=== PATIENT | female | born 1970 | race Caucasian/White ===

== ENCOUNTER 2024-05-04 08:51 | Day surgery (SDC) | payer OTHER, SELFPAY ==
[2024-05-02 17:00] VITALS: BMI 25.9
--- NOTE | 2024-05-03 10:11 | P.CONAN_ITS ---
Documented by User: Cara Gamble NP 05/03/24 10:12 HPI - Anesthesia Eval Consult details Narrative: 54yo F for Colonoscopy Chronic opioids PMFSH Past Medical History Medical History Depression Back pain OAB (overactive bladder) HLD (hyperlipidemia) COPD (chronic obstructive pulmonary disease) Cauda equina syndrome HTN (hypertension) Surgical History Surgical History (Updated 05/04/24 @ 09:52 by Jazlyn Aguilar RN) History of abdominoplasty Hx laparoscopic cholecystectomy Hx of cholecystectomy Hx of tonsillectomy History of loop electrical excision procedure (LEEP) History of back surgery Hx of neck surgery Hx of colonoscopy Social History Social History Patient Tobacco Use Status: Never used Tobacco Advance Directives: No Advance Directives Information Provided: Yes Meds Allergies Allergy/AdvReac Type Severity Reaction Status Date / Time amitriptyline Allergy Unknown Verified 05/03/24 09:36 codeine Allergy Unknown Verified 05/03/24 09:36 olanzapine [From Zyprexa] Allergy Unknown Verified 05/03/24 09:36 Sulfa (Sulfonamide Allergy Unknown Verified 05/03/24 09:36 Antibiotics) venlafaxine [From Effexor] Allergy Unknown Verified 05/04/24 09:53 Home Medications ?Medication ?Instructions ?Recorded ?Confirmed ?Last Taken ?Type albuterol sulfate 90 mcg/actuation inhalation 05/02/24 Unknown History aerosol inhaler budesonide 160 mcg-glycopyr 9 2 inh inhalation BID 05/02/24 05/02/24 05/04/24 History mcg-formot 4.8 mcg/actuation HFA inhaler (Breztri Aerosphere) carisoprodol 350 mg tablet 350 mg PO TID PRN muscle spasm 05/02/24 05/02/24 Unknown History diazepam 5 mg tablet 5 mg PO TID PRN anxiety 05/02/24 05/02/24 Unknown History ferrous sulfate 325 mg (65 mg 325 mg PO DAILY 05/02/24 05/02/24 Unknown History iron) tablet gabapentin 800 mg tablet 800 mg PO QID 05/02/24 05/02/24 Unknown History lisinopril 40 mg tablet 40 mg DAILY 05/02/24 05/04/24 05/04/24 History metoprolol succinate 100 mg 100 mg PO DAILY 05/02/24 05/02/24 05/04/24 History capsule sprinkle, ext. release 24 hr mirabegron 50 mg tablet,extended mg PO DAILY 05/02/24 Unknown History release 24 hr nicotine 21 mg/24 hr daily 1 patch topical BEDTIME 05/02/24 05/02/24 Unknown History transdermal patch nystatin 100,000 unit/mL oral PO 05/02/24 Unknown History suspension oxycodone 30 mg tablet,crush 30 mg PO Q8H 05/02/24 05/02/24 Unknown History resistant,extended release 12 hr (OxyContin) oxycodone 5 mg tablet 5 mg PO Q6H PRN Pain 05/02/24 05/02/24 Unknown History simvastatin 20 mg tablet 20 mg PO QPM 05/02/24 05/02/24 Unknown History trazodone 100 mg tablet 150 - 200 mg PO BEDTIME PRN 05/02/24 05/02/24 Unknown History insomnia Exam Height,Weight and Vital Signs: Height 5 ft 5 in Weight 70.534 kg Assessment and Plan Assessment Anesthesia Assessment: Chart Reviewed Documented by User: Jim Scott MD 05/04/24 10:29 [facility] Past Medical History Medical History Depression Back pain OAB (overactive bladder) HLD (hyperlipidemia) COPD (chronic obstructive pulmonary disease) Cauda equina syndrome HTN (hypertension) Family History Family history of problems with anesthesia: No Surgical History Surgical History (Updated 05/04/24 @ 09:52 by Jazlyn Aguilar RN) History of abdominoplasty Hx laparoscopic cholecystectomy Hx of cholecystectomy Hx of tonsillectomy History of loop electrical excision procedure (LEEP) History of back surgery Hx of neck surgery Hx of colonoscopy History of Problems with Anesthesia: No Social History Social History Patient Tobacco Use Status: Never used Tobacco Advance Directives: No Advance Directives Information Provided: Yes Meds Allergies Allergy/AdvReac Type Severity Reaction Status Date / Time amitriptyline Allergy Unknown Verified 05/03/24 09:36 codeine Allergy Unknown Verified 05/03/24 09:36 olanzapine [From Zyprexa] Allergy Unknown Verified 05/03/24 09:36 Sulfa (Sulfonamide Allergy Unknown Verified 05/03/24 09:36 Antibiotics) venlafaxine [From Effexor] Allergy Unknown Verified 05/04/24 09:53 Home Medications ?Medication ?Instructions ?Recorded ?Confirmed ?Last Taken ?Type albuterol sulfate 90 mcg/actuation inhalation 05/02/24 Unknown History aerosol inhaler budesonide 160 mcg-glycopyr 9 2 inh inhalation BID 05/02/24 05/02/24 05/04/24 History mcg-formot 4.8 mcg/actuation HFA inhaler (Breztri Aerosphere) carisoprodol 350 mg tablet 350 mg PO TID PRN muscle spasm 05/02/24 05/02/24 Unknown History diazepam 5 mg tablet 5 mg PO TID PRN anxiety 05/02/24 05/02/24 Unknown History ferrous sulfate 325 mg (65 mg 325 mg PO DAILY 05/02/24 05/02/24 Unknown History iron) tablet gabapentin 800 mg tablet 800 mg PO QID 05/02/24 05/02/24 Unknown History lisinopril 40 mg tablet 40 mg DAILY 05/02/24 05/04/24 05/04/24 History metoprolol succinate 100 mg 100 mg PO DAILY 05/02/24 05/02/24 05/04/24 History capsule sprinkle, ext. release 24 hr mirabegron 50 mg tablet,extended mg PO DAILY 05/02/24 Unknown History release 24 hr nicotine 21 mg/24 hr daily 1 patch topical BEDTIME 05/02/24 05/02/24 Unknown History transdermal patch nystatin 100,000 unit/mL oral PO 05/02/24 Unknown History suspension oxycodone 30 mg tablet,crush 30 mg PO Q8H 05/02/24 05/02/24 Unknown History resistant,extended release 12 hr (OxyContin) oxycodone 5 mg tablet 5 mg PO Q6H PRN Pain 05/02/24 05/02/24 Unknown History simvastatin 20 mg tablet 20 mg PO QPM 05/02/24 05/02/24 Unknown History trazodone 100 mg tablet 150 - 200 mg PO BEDTIME PRN 05/02/24 05/02/24 Unknown History insomnia Exam Airway Mallampati Class: II TM Dist: <=3cm Neck ROM: Full Loose/Missing/Broken Teeth: No Heart: ok Lungs: ok Assessment and Plan Assessment Anesthesia Assessment: Anesthesia Plan Discussed Final Anesthetic Review Family History of Problems with Anesthesia: No History of Problems with Anesthesia: No NPO: Yes ASA Class: III Final Preanesthetic Review: No Changes in Pt Med Stat, Meds/Allgs Chart Reviewed, Consent Obtained/Reviewed and Anes Risks/Benef Reviewed Patient Risk: Intermediate Procedure Risk: Low Anesthetic Plan Anesthetic Plan: MAC: and Agree w/ Assess. and Plan Disposition: Standard PACU
[2024-05-04 09:56] VITALS: BP 146/95; PULSE 71; RESP 14; TEMP 36.7; O2SAT 97
[2024-05-04 10:00] VITALS: BMI 24.8
[2024-05-04] MEDS: Lactated Ringers 1,000 ML 100 ML IVCONT (10:09)
--- NOTE | 2024-05-04 10:14 | MHC.SHP ---
Pre-Procedural Eval Section A - 24 Hr Update-Section A only Date of Service: 05/04/24 Section B - Complete if H&P > 30 days Chief Complaint: screening,hx malignant neoplasm Details of Present Illness: see h&p no changes Relevant Family History (Specify if Yes): No Relevant Social History: None Present Medications: see Short Stay Collaborative assessment Medical History: No relevant PMH History of Previous Operations: No relevant previous surgery Allergies: Allergies Allergy/AdvReac Type Severity Reaction Status Date / Time amitriptyline Allergy Unknown Verified 05/03/24 09:36 codeine Allergy Unknown Verified 05/03/24 09:36 olanzapine [From Zyprexa] Allergy Unknown Verified 05/03/24 09:36 Sulfa (Sulfonamide Allergy Unknown Verified 05/03/24 09:36 Antibiotics) venlafaxine [From Effexor] Allergy Unknown Verified 05/04/24 09:53 Review of Systems Sugical H&P ROS: Negative: Constitution, Cardiovascular, Respiratory, Neurological, Psychiatric, Hem-Onc, Allergic/Immunologic, Gastrointestinal, Genitourinary, Musculoskeletal, Integumentary, Endocrine and Eyes/Ears/Nose/Throat Exam Surgical H&P Exam: Normal: HEENT, Normal: Heart, Normal: Lungs, Normal: Extremities, Normal: Abdomen, Normal: Skin and Normal: Neurological Plan Diagnosis/Plan: Unchanged I have reviewed the history and physical and performed a pertinent physical examination on my patient. No changes have occurred unless specified. Time Spent With Patient Time: Total time managing care of this patient today ____ minutes.
--- NOTE | 2024-05-04 10:58 | PM.OP ---
Brief Operative Note Date of Service: 05/04/24 Pre-op diagnosis: screening Post-op diagnosis: same Procedure: colonoscopy Surgeon: Naresh Donovan MD Anesthesia: MAC Was an Technology Education Instructor used for this Procedure?: No Estimated blood loss (mL): 0 Pathology: none sent Condition: stable Disposition: PACU
[2024-05-04 11:01] VITALS: BP 102/64; PULSE 74; RESP 18; TEMP 36.4; O2SAT 97
[2024-05-04 11:16] VITALS: BP 124/77; PULSE 69; RESP 18; TEMP 36.6; O2SAT 99
--- NOTE | 2024-05-04 11:22 | OP_ITS ---
DATE OF SERVICE: 05/04/2024 SURGEON: Naresh Donovan MD INDICATIONS: Colon cancer screening and family history of colon cancer. PREOPERATIVE DIAGNOSIS: POSTOPERATIVE DIAGNOSIS: PROCEDURE PERFORMED: Colonoscopy to the terminal ileum. ESTIMATED BLOOD LOSS: COMPLICATIONS: ANESTHESIA: Monitored anesthesia care. ASSISTANTS: SPECIMENS: DESCRIPTION OF PROCEDURE: A history and physical performed. The risks and benefits of the procedure were explained to the patient. Informed consent was obtained. The patient was placed in the left lateral decubitus position. The Olympus videocolonoscope was introduced into the rectum following digital rectal examination. The scope was advanced to the cecum. The cecum was identified by transillumination, palpation, identification of ileocecal valve. Examination was performed. The scope was removed. She tolerated the procedure well and was returned to recovery area in stable condition. FINDINGS: The terminal ileum was normal. Visualized colonic mucosa was normal. The quality of the prep was good. No polyps were identified. Retroflexed examination showed small internal hemorrhoids. IMPRESSION: Normal colonoscopy. RECOMMENDATIONS: 1. Follow up as needed. 2. Repeat colonoscopy is recommended in 5 years for family history of colon cancer. MD AMILCAR Collado/DIEGOL / [id number]
== END 2024-05-04 11:56 | disposition home or self-care (01) ==
PROVIDERS: Visit Provider Internal Medicine Gastroenterology
PROC: 0DJD8ZZ Inspection of Lower Intestinal Tract, Via Natural or Artificial Opening Endoscopic (ICD-10-PCS; CPT 45378; principal; 2024-05-04 10:40)
DX: Z12.11 Encounter for screening for malignant neoplasm of colon (principal); Z80.0 Family history of malignant neoplasm of digestive organs; K64.8 Other hemorrhoids; I10 Essential (primary) hypertension; G83.4 Cauda equina syndrome; J44.9 Chronic obstructive pulmonary disease, unspecified; E78.5 Hyperlipidemia, unspecified; N32.81 Overactive bladder; Z90.49 Acquired absence of other specified parts of digestive tract; Z79.899 Other long term (current) drug therapy; Z88.2 Allergy status to sulfonamides; Z88.5 Allergy status to narcotic agent; Z88.8 Allergy status to other drugs, medicaments and biological substances; Z98.890 Other specified postprocedural states; F17.290 Nicotine dependence, other tobacco product, uncomplicated
CPT/HCPCS: 45378; J2003; J2704; J3010